=== PATIENT | female | born 1975 | race Caucasian/White ===

== ENCOUNTER 2017-07-10 18:44 | Emergency (ER) | payer MEDICAID, OTHER ==
[2017-07-10 19:02] VITALS: BP 144/80; PULSE 92; RESP 18; TEMP 98; O2SAT 97
--- NOTE | 2017-07-10 19:24 | ED PDOC ---
HPI: Abdomen Time Seen by Provider: 07/10/17 19:04 Chief Complaint (Nursing): Abdominal Pain Chief Complaint (Provider): Pain and bleeding in History Per: Patient Additional Complaint(s): Pt is a 41 yo female, PMH of DM, HTN, High Cholesterol, states she is 5 weeks , c/o pain lower abd and back since this a.m., no vaginal bleeding at this time but was bleeding 1 week ago. Past Medical History Reviewed: Nursing Documentation, Vital Signs Vital Signs: Last Vital Signs Temp 98 F 07/10/17 18:58 Pulse 92 H 07/10/17 18:58 Resp 18 07/10/17 18:58 BP 144/80 07/10/17 18:58 Pulse Ox 97 07/10/17 19:24 - Medical History PMH: Diabetes, HTN, Hypercholesterolemia - Surgical History Surgical History: (x2) - Family History Family History: States: Unknown Family Hx - Living Arrangements Living Arrangements: With Family - Social History Current smoker - smoking cessation education provided: No Ex-Smoker (has not smoked in the last 12 months): No Alcohol: None Drugs: Denies - Immunization History Hx Tetanus Toxoid Vaccination: No Hx Influenza Vaccination: Yes Hx Pneumococcal Vaccination: No - Home Medications Home Medications: Ambulatory Orders Medication Instructions Recorded Enalapril Maleate [Vasotec] 2.5 mg PO DAILY 07/15/16 Glimepiride [Amaryl] 4 mg PO BID 07/15/16 Ibuprofen [Motrin] 600 mg PO BID 07/15/16 Saxagliptin HCl/Metformin HCl 1 each PO BID 07/15/16 [Kombiglyze Xr 2.5-1,000 mg Tab] Prednisone [Deltasone] 20 mg PO DAILY #4 tablet 07/16/16 oxyCODONE/Acetaminophen [Percocet 1 tab PO BID #6 tab 07/16/16 5/325 mg Tab] - Allergies Allergies/Adverse Reactions: Allergies Allergy/AdvReac Type Severity Reaction Status Date / Time No Known Allergies Allergy Verified 07/10/17 18:58 Review of Systems ROS Statement: Except As Marked, All Systems Reviewed And Found Negative Gastrointestinal: Positive for: Abdominal Pain Physical Exam - Reviewed Nursing Documentation Reviewed: Yes Vital Signs Reviewed: Yes - Physical Exam Appears: Positive for: Well, Non-toxic, No Acute Distress Head Exam: Positive for: ATRAUMATIC, NORMAL INSPECTION, NORMOCEPHALIC Skin: Positive for: Normal Color, Warm, DRY Eye Exam: Positive for: EOMI, Normal appearance, PERRL ENT: Positive for: Normal ENT Inspection Neck: Positive for: Normal, Painless ROM Cardiovascular/Chest: Positive for: Regular Rate, Rhythm Respiratory: Positive for: CNT, Normal Breath Sounds Gastrointestinal/Abdominal: Positive for: Normal Exam, Bowel Sounds, Soft, Tenderness (suprapubic tenderness) Back: Positive for: Normal Inspection Extremity: Positive for: Normal ROM Neurologic/Psych: Positive for: Alert, Oriented - Laboratory Results Result Diagrams: 07/10/17 19:39 - ECG O2 Sat by Pulse Oximetry: 97 Medical Decision Making Medical Decision Making: Diagnostics ordered. Pt declined Acetaminophen at this time. CBC resulted WNL Case endorsed to CEDRIC Price at 1999 pending diagnotic review and re-eval Disposition - Clinical Impression Clinical Impression: Abdominal pain during - Patient ED Disposition Is Patient to be Admitted: Transfer of Care - Disposition Disposition: Transfer of Care Disposition Time: 20:00 Condition: STABLE Forms: [facility] (Montenegrin) - POA Present On Arrival: None
[2017-07-10 19:38] LABS: BASO # 0.1 K/uL (0.0-0.2); BASO % 0.8 % (0.0-2.0); EOS # 0.1 K/uL (0.0-0.7); EOS % 1.6 % (0.0-4.0); HEMATOCRIT 36.1 % (34.0-47.0); LYMPH # 3.3 K/uL (1.0-4.3); LYMPH % 53.3 % (20.0-40.0); MEAN CELL VOLUME 77.4 fl (81.0-99.0); MEAN CORPUSCULAR HEMOGLOBIN 24.7 pg (27.0-31.0); MONO # 0.5 K/uL (0.0-0.8); MONO % 8.2 % (0.0-10.0); NEUT # 2.2 K/uL (1.8-7.0); NEUT % 36.1 % (50.0-75.0); NRBC % 0.1 % (0.0-0.0); RED CELL DISTRIBUTION WIDTH 15.9 % (11.5-14.5); WHITE BLOOD COUNT 6.1 K/uL (4.8-10.8)
--- NOTE | 2017-07-10 21:04 | US ---
EXAM: US First Trimester, Transabdominal CLINICAL HISTORY: 41 years old, female; Signs and symptoms; Lmp or gestational age (in weeks): 05/19/17; Antepartum complications; Hemorrhage; Additional info: Pain, bleeding TECHNIQUE: Real-time transabdominal obstetrical ultrasound of the maternal pelvis and a first trimester with image documentation. COMPARISON: No relevant prior studies available. FINDINGS: Gestation: No intrauterine gestational sac. Uterus/cervix: Endometrium: 0.6 cm in thickness. Closed cervix. Ovaries: RIGHT ovary: 1.1 x 0.6 x 1.1 cm anechoic lesion. LEFT ovary: Normal. No adnexal masses. Free fluid: No significant free fluid. IMPRESSION: 1. No intrauterine gestation. DDX: Early IUP, missed , ectopic . 2. RIGHT ovarian cyst.
--- NOTE | 2017-07-10 21:39 | ED PDOC ---
- Laboratory Results Result Diagrams: 07/10/17 19:39 - ECG O2 Sat by Pulse Oximetry: 97 - Progress ED Course And Treament: Case endorsed to literary writer from [facility] pending labs, u/s EXAM: US First Trimester, Transabdominal CLINICAL HISTORY: 41 years old, female; Signs and symptoms; Lmp or gestational age (in weeks): 05/19; Antepartum complications; Hemorrhage; Additional info: Pain, bleeding TECHNIQUE: Real-time transabdominal obstetrical ultrasound of the maternal pelvis and a first trimester with image documentation. COMPARISON: No relevant prior studies available. FINDINGS: Gestation: No intrauterine gestational sac. Uterus/cervix: Endometrium: 0.6 cm in thickness. Closed cervix. Ovaries: RIGHT ovary: 1.1 x 0.6 x 1.1 cm anechoic lesion. LEFT ovary: Normal. No adnexal masses. Free fluid: No significant free fluid. IMPRESSION: 1. No intrauterine gestation. DDX: Early IUP, missed , ectopic . 2. RIGHT ovarian cyst. Patient educated on findings, discharged with instructions to follow up with Ob/ Music Intern in 48 hours for repeat beta. Return to ED for worsening/concerning symptoms. Disposition - Clinical Impression Clinical Impression: Threatened miscarriage, Ovarian cyst - POA Present On Arrival: None - Disposition Disposition: Routine/Home Disposition Time: 22:45 Condition: STABLE Additional Instructions: Follow up in 2 days for re-evaluation. Return to ED sooner for worsening/concerning symptoms. Instructions: Threatened Miscarriage (ED), Ovarian Cyst (ED)
== END 2017-07-10 23:00 | disposition home or self-care (01) ==
LOC: H.ER 18:44
DX: O20.0 Threatened abortion (principal); N83.201 Unspecified ovarian cyst, right side

== ENCOUNTER 2017-07-12 19:41 | Emergency (ER) | payer MEDICAID ==
[2017-07-12 19:55] VITALS: BP 127/75; PULSE 82; RESP 18; TEMP 97.9; O2SAT 98
--- NOTE | 2017-07-12 20:35 | ED PDOC ---
HPI: Female Pain Time Seen by Provider: 07/12/17 20:09 Chief Complaint (Nursing): Female Genitourinary Chief Complaint (Provider): Follow-Up History Per: Patient History/Exam Limitations: no limitations Onset/Duration Of Symptoms: Days (x2) Current Symptoms Are (Timing): Still Present Additional Complaint(s): Vicente Bran is a 41 year old female, 5 weeks , with a past medical history of diabetes, hypertension, and high cholesterol presenting to the ED for a follow up from her last ED visit on 07/10/17 for lower abdominal pain and back pain. She states she had blood work completed and an ultrasound completed, all resulting as normal. The patient states her tests were repeated, therefore she is returning to the ED for a follow up on her results. She states she had no vaginal bleeding, but does have some spotting and has used 1 pad today. She still has minor pelvic pain and cramping. She denies nausea or vomiting. P: 5 Of note, the patient's last menstrual period was on 05/19/17. PMD: Latricia Phillips MD Past Medical History Reviewed: Historical Data, Nursing Documentation, Vital Signs Vital Signs: Last Vital Signs Temp 97.9 F 07/12/17 19:51 Pulse 82 07/12/17 19:51 Resp 18 07/12/17 19:51 BP 127/75 07/12/17 19:51 Pulse Ox 98 07/12/17 19:51 - Medical History PMH: Diabetes, HTN, Hypercholesterolemia - Surgical History Surgical History: (x2) - Family History Family History: States: Unknown Family Hx - Immunization History Hx Tetanus Toxoid Vaccination: No Hx Influenza Vaccination: Yes Hx Pneumococcal Vaccination: No - Home Medications Home Medications: Ambulatory Orders Medication Instructions Recorded Enalapril Maleate [Vasotec] 2.5 mg PO DAILY 07/15/16 Glimepiride [Amaryl] 4 mg PO BID 07/15/16 Ibuprofen [Motrin] 600 mg PO BID 07/15/16 Saxagliptin HCl/Metformin HCl 1 each PO BID 07/15/16 [Kombiglyze Xr 2.5-1,000 mg Tab] Prednisone [Deltasone] 20 mg PO DAILY #4 tablet 07/16/16 oxyCODONE/Acetaminophen [Percocet 1 tab PO BID #6 tab 07/16/16 5/325 mg Tab] - Allergies Allergies/Adverse Reactions: Allergies Allergy/AdvReac Type Severity Reaction Status Date / Time No Known Allergies Allergy Verified 07/10/17 18:58 Review of Systems ROS Statement: Except As Marked, All Systems Reviewed And Found Negative Gastrointestinal: Negative for: Nausea, Vomiting Genitourinary Female: Positive for: Pelvic Pain (minor pelvic pain with cramping ). Negative for: Vaginal Bleeding Physical Exam - Reviewed Nursing Documentation Reviewed: Yes Vital Signs Reviewed: Yes - Physical Exam Appears: Positive for: Non-toxic, No Acute Distress Head Exam: Positive for: ATRAUMATIC, NORMOCEPHALIC Skin: Positive for: Normal Color, Warm, Dry Eye Exam: Positive for: Normal appearance Neck: Positive for: Normal Cardiovascular/Chest: Positive for: Regular Rate, Rhythm, Chest Non Tender. Negative for: Murmur Respiratory: Positive for: Normal Breath Sounds. Negative for: Respiratory Distress Gastrointestinal/Abdominal: Positive for: Soft, Tenderness (mild suprapubic tenderness) Extremity: Positive for: Normal ROM Neurologic/Psych: Positive for: Alert, Oriented (x3) - Laboratory Results Result Diagrams: 07/12/17 21:02 - ECG O2 Sat by Pulse Oximetry: 98 (RA) Pulse Ox Interpretation: Normal Medical Decision Making Medical Decision Making: Time: 20:09 Impression: Follow-Up Plan: * Beta-HCG, Quantitative * CBC (with differential) * Reevaluation Beta levels decreasing 108 (07/10/17) to 88 (today). Case discussed with Dr. Monsivais, [facility], who advises patient's HCG should be followed until zero. He recommends patient f/u with him in the office or OBGYN clinic in 2-3 days for repeat HCG levels. Patient advised pelvic rest and to f/u as instructed. Return for any worsening pain or bleeding. She expresses understanding and agreement. Horacio Mancia #[id number] interpreted for patient. Scribe Attestation: Documented by Shari Traore, acting as a scribe for Deb Raza PA-C. Provider Scribe Attestation: All medical record entries made by the Scribe were at my direction and personally dictated by me. I have reviewed the chart and agree that the record accurately reflects my personal performance of the history, physical exam, medical decision making, and the department course for this patient. I have also personally directed, reviewed, and agree with the discharge instructions and disposition. Disposition - Clinical Impression Clinical Impression: Vaginal bleeding before 22 weeks gestation, Threatened in first trimester, Threatened miscarriage - Patient ED Disposition Is Patient to be Admitted: No Discussed With : Rick Monsivais Comment: OBGYN Counseled Patient/Family Regarding: Studies Performed, Diagnosis, Need For Followup - Disposition Referrals: Rick Monsivais DO [Staff Provider] - Disposition: Routine/Home Disposition Time: 22:25 Condition: STABLE Additional Instructions: PELVIC REST, RETURN in 2-3 days for repeat HCG, or F/U with Dr. Monsivais in 2-3 days for repeat HCG. Return sooner for any worsening of bleeding or pain. Instructions: Threatened Miscarriage (ED), Pelvic Rest (ED) Forms: [facility] (Romansh) Print Language: ESTONIAN
[2017-07-12 21:09] LABS: BASO % 0.7 % (0.0-2.0); EOS # 0.1 K/uL (0.0-0.7); LYMPH # 3.8 K/uL (1.0-4.3); LYMPH % 52.3 % (20.0-40.0); MEAN CELL VOLUME 77.8 fl (81.0-99.0); MEAN CORPUSCULAR HEMOGLOBIN 25.2 pg (27.0-31.0); MEAN CORPUSCULAR HGB CONC 32.4 g/dL (33.0-37.0); MEAN PLATELET VOLUME 7.9 fl (7.2-11.7); MONO # 0.6 K/uL (0.0-0.8); MONO % 8.1 % (0.0-10.0); NEUT # 2.6 K/uL (1.8-7.0); NEUT % 36.9 % (50.0-75.0); NRBC % 0.1 % (0.0-0.0); RED CELL DISTRIBUTION WIDTH 15.8 % (11.5-14.5); WHITE BLOOD COUNT 7.2 K/uL (4.8-10.8)
== END 2017-07-12 22:46 | disposition home or self-care (01) ==
LOC: H.ER 19:41
DX: O20.8 Other hemorrhage in early pregnancy (principal)

== ENCOUNTER 2017-12-09 18:40 | Emergency (ER) | payer MEDICAID ==
[2017-12-09 19:02] VITALS: TEMP 98.1
--- NOTE | 2017-12-09 19:54 | ED PDOC ---
HPI: SOB/CHF/COPD Time Seen by Provider: 12/09/17 19:16 Chief Complaint (Nursing): Shortness Of Breath History Per: Patient, Moose Hunter ([place] [id number]) History/Exam Limitations: no limitations Onset/Duration Of Symptoms: Gradual Current Symptoms Are (Timing): Still Present Quality: Dull, Aching Severity: Mild Associated Symptoms: denies: Fever, Chills, Sweating, Chest Pain, Productive Cough, Heart Racing, Leg/Calf Pain, Ankle/Leg Swelling, Dizziness, Light- headedness, Anxiety Similar Symptoms Previously: no Additional History Per: Patient Additional Complaint(s): Patient complaining of shortness of breath and cough x 5 days. mild left sided cp waxing and waning for the same time no trauma no exertion nothing makes it better or worse. Past Medical History Reviewed: Historical Data, Nursing Documentation, Vital Signs Vital Signs: Last Vital Signs Temp 98.1 F 12/09/17 18:58 Pulse 81 12/09/17 20:52 Resp 16 12/09/17 20:52 BP 125/72 12/09/17 20:52 Pulse Ox 100 12/09/17 23:24 - Medical History PMH: Anemia, Diabetes, HTN, Hypercholesterolemia - Surgical History Surgical History: (x2) - Family History Family History: States: Unknown Family Hx - Living Arrangements Living Arrangements: With Family - Social History Current smoker - smoking cessation education provided: No - Immunization History Hx Tetanus Toxoid Vaccination: No Hx Influenza Vaccination: Yes Hx Pneumococcal Vaccination: No - Home Medications Home Medications: Ambulatory Orders Medication Instructions Recorded Enalapril Maleate [Vasotec] 2.5 mg PO DAILY 07/15/16 Glimepiride [Amaryl] 4 mg PO BID 07/15/16 Ibuprofen [Motrin] 600 mg PO BID 07/15/16 Saxagliptin HCl/Metformin HCl 1 each PO BID 07/15/16 [Kombiglyze Xr 2.5-1,000 mg Tab] Prednisone [Deltasone] 20 mg PO DAILY #4 tablet 07/16/16 oxyCODONE/Acetaminophen [Percocet 1 tab PO BID #6 tab 07/16/16 5/325 mg Tab] - Allergies Allergies/Adverse Reactions: Allergies Allergy/AdvReac Type Severity Reaction Status Date / Time No Known Allergies Allergy Verified 07/10/17 18:58 Review of Systems ROS Statement: Except As Marked, All Systems Reviewed And Found Negative Constitutional: Negative for: Fever, Chills Cardiovascular: Negative for: Chest Pain, Palpitations Respiratory: Negative for: Cough, Shortness of Breath Gastrointestinal: Negative for: Nausea, Vomiting, Abdominal Pain Physical Exam - Reviewed Nursing Documentation Reviewed: Yes Vital Signs Reviewed: Yes - Physical Exam Appears: Positive for: Uncomfortable Head Exam: Positive for: ATRAUMATIC, NORMAL INSPECTION, NORMOCEPHALIC Eye Exam: Positive for: Normal appearance, EOMI, PERRL Neck: Positive for: Normal, Painless ROM, Supple Cardiovascular/Chest: Positive for: Regular Rate, Rhythm, Chest Non Tender. Negative for: Edema, Gallop, Murmur, Bradycardia, Tachycardia Respiratory: Positive for: Normal Breath Sounds. Negative for: Decreased Breath Sounds, Accessory Muscle Use, Crackles, Rales, Rhonchi, Stridor, Wheezing , Respiratory Distress Pulses-Radial (L): 2+ Pulses-Radial (R): 2+ Gastrointestinal/Abdominal: Positive for: Normal Exam, Bowel Sounds, Soft. Negative for: Tenderness Back: Positive for: Normal Inspection. Negative for: L CVA Tenderness, R CVA Tenderness Extremity: Positive for: Normal ROM. 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 Negative for: Motor/Sensory Deficits - Laboratory Results Result Diagrams: 12/09/17 20:00 12/09/17 20:00 - ECG ECG: Positive for: Interpreted By Mi ECG Rhythm: Positive for: Normal QRS, Normal ST Segment, Sinus Rhythm Interpretation Of Abn EKG: rate of 75, no evidence of ischemia O2 Sat by Pulse Oximetry: 100 Pulse Ox Interpretation: Normal - Radiology X-Ray: Interpreted by Mi X-Ray Interpretation: No Acute Disease - Progress ED Course And Treament: two neg trop r/o PR, advise close f/u with pmd and cards. advise no exertion until seen by cards. 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 Re-evaluation Time: 23:00 Condition: Re-examined, Improved Disposition - Clinical Impression Clinical Impression: Chest pain - Patient ED Disposition Is Patient to be Admitted: No Counseled Patient/Family Regarding: Studies Performed, Diagnosis, Need For Followup - Disposition Referrals: [facility] [Outside] Disposition: Routine/Home Disposition Time: 23:24 Condition: GOOD Instructions: Chest Pain Forms: [facility] (Ukrainian) - [employer]pencer Present On Arrival: None
[2017-12-09 20:17] LABS: BASO # 0.1 K/uL (0.0-0.2); BASO % 1.1 % (0.0-2.0); EOS # 0.1 K/uL (0.0-0.7); EOS % 1.9 % (0.0-4.0); HEMOGLOBIN 12.1 g/dL (12.0-16.0); LYMPH # 2.9 K/uL (1.0-4.3); MEAN CELL VOLUME 77.2 fl (81.0-99.0); MEAN CORPUSCULAR HEMOGLOBIN 25.6 pg (27.0-31.0); MEAN CORPUSCULAR HGB CONC 33.1 g/dL (33.0-37.0); MEAN PLATELET VOLUME 8.1 fl (7.2-11.7); MONO # 0.5 K/uL (0.0-0.8); NEUT # 2.5 K/uL (1.8-7.0); NRBC % 0.3 % (0.0-0.0); RBC 4.73 Mil/uL (3.80-5.20); RED CELL DISTRIBUTION WIDTH 15.3 % (11.5-14.5)
[2017-12-09 20:25] LABS: PARTIAL THROMBOPLASTIN TIME 29.9 Seconds (25.6-37.1); PROTHROMBIN TIME 11.2 Seconds (9.8-13.1)
[2017-12-09 20:26] LABS: ALB/GLOB RATIO 1.1 (1.0-2.1); ALBUMIN 4.2 g/dL (3.5-5.0); ALT/SGPT 25 U/L (9-52); AST/SGOT 22 U/L (14-36); BLOOD UREA NITROGEN 13 mg/dl (7-17); CALCIUM 9.7 mg/dL (8.4-10.2); GFR AFRICAN-AMERICAN > 60; GFR NON-AFRICAN AMERICAN > 60; MAGNESIUM 1.6 MG/DL (1.6-2.3)
[2017-12-09 20:53] VITALS: BP 125/72; PULSE 81; RESP 16
[2017-12-09 23:25] VITALS: O2SAT 100
--- NOTE | 2017-12-10 09:08 | RAD ---
HISTORY: cp COMPARISON: No prior. TECHNIQUE: Chest PA and lateral FINDINGS: LUNGS: No active pulmonary disease. PLEURA: No significant pleural effusion identified. No pneumothorax apparent. CARDIOVASCULAR: Normal. OSSEOUS STRUCTURES: No significant abnormalities. VISUALIZED UPPER ABDOMEN: Normal. OTHER FINDINGS: None. IMPRESSION: No active disease.
--- NOTE | 2017-12-13 18:29 | CARD ---
APPROVED REPORT EKG Measurement Heart [id number] <Conclusion> Normal sinus rhythm Normal ECG
== END 2017-12-10 00:10 | disposition home or self-care (01) ==
LOC: H.ER 18:40
DX: R07.89 Other chest pain (principal); E11.9 Type 2 diabetes mellitus without complications; E78.00 Pure hypercholesterolemia, unspecified; I10 Essential (primary) hypertension; Z79.84 Long term (current) use of oral hypoglycemic drugs; D64.9 Anemia, unspecified